=== PATIENT | male | born 1960 | race Caucasian/White ===

== ENCOUNTER 2018-07-27 21:21 | Observation (INO) | payer OTHER ==
[2018-07-27 21:25] VITALS: BMI 31.7
--- NOTE | 2018-07-27 21:57 | PDOC ---
Attending Attestation - HPI HPI: 07/27/18 22:26 The patient is a 58 year old man with no PMH of cough productive of yellow colored phlegm, nasal congestion, shortness of breath, and chest tightness with exertion for the past week. Patient is also complaining of pain to her upper extremities and back pain for 3 days. Patient took ampicillin, theraflu and nebulizer at home. Patient admits to positive sick contact. The patient denies headache, dizziness, fever, chills, nausea, vomit, diarrhea and constipation. Denies dysuria, frequency, urgency and hematuria. Allergies; NKDA Surgeries: None reported. Social Hx: Occasional cocaine use. Denies cigarette or alcohol use. 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 Pt has no wheezing. No coughing in the ER, Afebrile; Pt has chest tightness. - Medical Decision Making 07/27/18 21:57 Repeat 137/80s systolic on right; 158/80s systolic left 07/27/18 23:36 Flu negative. WBC normal. CBC normal Rest of labs normal. 07/28/18 00:36 Pt has a +elevated trop and an EKG with ST depression and NSTEMI 07/28/18 06:01 2nd cardiac enzyme is going up. Pt will have a 3rd enzyme sent. He is on heparin drip. <Lula Guthrie - Last Filed: 07/28/18 06:02>
--- NOTE | 2018-07-27 22:02 | PDOC ---
History of Present Illness - General Chief Complaint: Shortness of Breath Stated Complaint: COLD SYMPTOMS Time Seen by Provider: 07/27/18 21:35 - History of Present Illness Initial Comments: 07/27/18 21:57 58 year old man with no past medical history of 1 week of coughing up yellow/ brown phlegm, congestion, shortness of breath and 8/10 chest tightness that occurs when coughing and on exertion. The patient complains of upper extremity muscle pain and L sided upper back pain for 3 days. The patient has taken ampicillin, theraflu and albuterol neb at home for symptom relief. The patient denies chest pain radiating to the back, or occurring outside of coughing or exertion. The patient denies recent travel, long flights, has w/ recent viral URI. Denies abdominal pain, N/V/D/C, has no other complaints at bedside. does not smoke but admits to occasional cocaine use Past History - Past Medical History Allergies/Adverse Reactions: Allergies Allergy/AdvReac Type Severity Reaction Status Date / Time No Known Allergies Allergy Verified 07/27/18 21:24 Home Medications: Ambulatory Orders NK [No Known Home Medication] 07/27/18 COPD: No - Immunization History Immunization Up to Date: Yes - Suicide/Smoking/Psychosocial Hx Smoking History: Never smoked Have you smoked in the past 12 months: No Hx Alcohol Use: No Drug/Substance Use Hx: No Substance Use Type: None *Physical Exam - Vital Signs Last Vital Signs Temp Pulse Resp BP Pulse Ox 97.9 F 70 22 H 195/99 H 97 07/27/18 21:22 07/27/18 21:22 07/27/18 21:22 07/27/18 21:22 07/27/18 21:22 - Physical Exam Comments: 07/27/18 22:03 normal exam slightly coarse breath sounds Moderate Sedation - Procedure Monitoring Vital Signs: Procedure Monitoring Vital Signs Temperature 97.9 F 07/27/18 21:22 Pulse Rate 70 07/27/18 21:22 Respiratory Rate 22 H 07/27/18 21:22 Blood Pressure 195/99 H 07/27/18 21:22 O2 Sat by Pulse Oximetry (%) 97 07/27/18 21:22 ED Treatment Course - LABORATORY CBC & Chemistry Diagram: 07/27/18 22:55 07/27/18 22:56 - RADIOLOGY Radiology Studies Ordered: Category Date Time Status CHEST X-RAY PORTABLE* [RAD] Stat Radiology 07/27/18 21:35 Ordered Medical Decision Making - Medical Decision Making 07/27/18 22:04 ED Course: influenza vs viral URI vs PNA vs bronchitis vs ACS cbc, cmp, trop, ekg, cxr, ua, utox ivf repeat bp on R arm 137/78 and L arm 158/80 07/28/18 00:41 troponin elevated. EKG done showed ST depression in V4- V6 ASA given 07/28/18 01:40 trop l;eevated to .24 ekg repeated without changes heparin drip started Cards called, no recs at this time. *DC/Admit/Observation/Transfer Diagnosis at time of Disposition: Chest pain, Viral syndrome, Cocaine use - Discharge Dispostion Disposition: HOME Condition at time of disposition: Stable Decision to Admit order: Yes - Referrals Referrals: [facility] [place] [facility] [place] [Provider Group] - Patient Instructions Printed Discharge Instructions: DI for Viral Syndrome Additional Instructions: You were seen in the ED for complaints of cough, congestion and fever. In the ED you were evaluated with labwork and imaging. Your results did not show concerning findings. There does not appear to be an acute need for immediate hospitalization. You are advised to follow up with your Primary Care Physician within 1 week. You were given a referral to Internal Medicine Clinic please follow up in 1 week. Take over the counter Motrin and Tylenol for your symptoms. Drink plenty of fluids and take rest. Do not use recreational drugs like cocaine. Return to the ED immediately if you experience worsening chest pain, shortness of breath, fever > 101F, neck pain or stiffness, muscle pain or aches. Usted fue visto en el servicio de urgencias por quejas de tos, congestin y fiebre. En el servicio de urgencias se le evalu con trabajo de laboratorio e imgenes. Niecy resultados no se mostraron en relacin con los resultados. No parece miky carine necesidad aguda de hospitalizacin inmediata. Se recomienda realizar un seguimiento con chandler mdico de atencin primaria dentro de 1 semana. Recibi carine derivacin a la clnica de medicina interna, por favor omero el seguimiento en 1 semana. Geraldine el contador Motrin y Tylenol para niecy sntomas. Letty muchos lquidos y descansa. No use drogas recreativas patti la cocana. Regrese a la antionette de urgencias inmediatamente si experimenta un empeoramiento del dolor en el pecho, falta de aliento, fiebre> 101F, dolor o rigidez en el taylor, dolor muscular o dolor - Post Discharge Activity
[2018-07-27] MEDS ORDERED: SODIUM CHLORIDE 1,000 ML IV SCH (22:45)
[2018-07-27 23:04] LABS: BASO % 1.4 % (0-2.0); EOS % 1.3 % (0-4.5); HEMATOCRIT 44.7 % (35.4-49); HEMOGLOBIN 15.7 GM/dL (11.7-16.9); LYMPH % 29.9 % (8-40); MCHC 35.1 g/dl (32.0-35.9); MEAN CELL VOLUME 88.4 fl (80-96); MEAN PLT VOLUME 8.5 fl (7.5-11.1); MONO % 5.2 % (3.8-10.2); NEUT % 62.2 % (42.8-82.8); PLATELET COUNT 247 K/MM3 (134-434); RBC 5.06 M/mm3 (4.00-5.60); RDW 12.6 % (11.9-15.9); WHITE BLOOD COUNT 4.8 K/mm3 (4.0-10.0)
[2018-07-27] MEDS ORDERED: IBUPROFEN 800 MG/8 ML IJ IVPB ONE (23:36)
[2018-07-27] MEDS ORDERED: IBUPROFEN 600 MG TABLET (FP) PO ONE (23:37)
[2018-07-27 23:40] LABS: ALBUMIN 3.8 g/dl (3.4-5.0); ALK PHOS 102 U/L (45-117); ANION GAP 8 MMOL/L (8-16); BILIRUBIN,TOTAL 0.3 mg/dL (0.2-1); BLOOD UREA NITROGEN 11 mg/dL (7-18); CALCIUM 8.8 mg/dL (8.5-10.1); CHLORIDE 106 mmol/L (98-107); CO2 28 mmol/L (21-32); GLUCOSE,RANDOM 140 mg/dL (74-106); N-TERMINAL BNP 242.8 pg/ml (5-125); POTASSIUM 3.5 mmol/L (3.5-5.1); SGOT/AST 24 U/L (15-37); SGPT/ALT 32 U/L (13-61); SODIUM 141 mmol/L (136-145); TOT PROT 7.4 g/dl (6.4-8.2)
[2018-07-28 00:10] LABS: METHADONE, UR NEGATIVE ng/ml (CUTOFF=300); OPIATES, URI NEGATIVE ng/ml (CUTOFF=300); PHENCYCLIDINE,URINE NEGATIVE ng/ml (CUTOFF=25); URINE AMPHETAMINES NEGATIVE ng/ml (CUTOFF=500); URINE BARBITURATES NEGATIVE ng/ml (CUTOFF=200); URINE BENZODIAZEPINES NEGATIVE ng/ml (CUTOFF=200)
[2018-07-28 00:16] LABS: COCAINE, UR POSITIVE ng/ml (CUTOFF=300)
[2018-07-28] MEDS ORDERED: ALBUTEROL SO4 2.5/IPRATROPIUM 0.5 INH SOL 3 ML VIAL.NEB. NEB ONE (00:20)
[2018-07-28] MEDS ORDERED: DEXAMETHASONE LIQUID 0.5 MG/5 ML 240 ML BULK BOTTLE PO ONE (00:21)
[2018-07-28] MEDS ORDERED: ASPIRIN 81 MG CHEWABLE TABLETS PO ONE (00:22)
[2018-07-28] MEDS ORDERED: ASPIRIN 81 MG CHEWABLE TABLETS ONE ×2 (00:26→12:59)
[2018-07-28] MEDS ORDERED: HEPARIN NA (PORCINE) 5,000 UNITS/ML 1ML VIAL IVPUSH PRN ×2 (00:35)
--- NOTE | 2018-07-28 01:12 | PN ---
Teaching Attending Note Name of Resident: Ludivina Bush ATTENDING PHYSICIAN STATEMENT I saw and evaluated the patient. I reviewed the resident's note and discussed the case with the resident. I agree with the resident's findings and plan as documented. SUBJECTIVE: Seen and examined; please refer to resident note for additional historical information. He has been having about a week of nonspecific URI sx (cough with yellow sputum, congestion, etc) and 2-3 days of atypical chest pain made worse with coughing and exertion; L-sided, hasn't had this pain before. Does have positive UDS for cocaine. We don't have any prior echos, cath reports, or stress tests in our system. Cardiology contacted by ER; they are aware of patient and will see in AM. 10 sys ROS done and negative aside from HPI PMH and PSH reviewed FH asked and noncontributory Social history reviewed; positive UDS for cocaine OBJECTIVE: VS, labs, imaging reviewed NAD, AAO, resting comfortably in bed RRR s1/2 no mgr Lungs CTAB w/ sym exp NT ND +BS CN2-12 wnl, no fnd Labs show unremarkable CBC, unremarkable chemistry except for glucose up to the 140 range. Troponin 0.15 and BNP 200 range EKG reviewed CXR reviewed Telemetry pending review ASSESSMENT AND PLAN: Presents with chest pain; positive UDS for cocaine 1) Chest pain with history of recent cocaine use -Monitor on telemetry; trend troponin (0.15 first, second value pending); discuss case with CV. Less likely ACS given the drug history -Check echo; further workup and management per cardiology 2) Cocaine Abuse -Counseled to stop using cocaine 3) HTN Urgency vs. Emergency -With positive trop being from cocaine would be urgency; if from the HTN emergency. Most likely a combination of the both. -PRN hydralazine to get to goal 150-160 -Start amlodipine 5 QD and lisinopril 2.5 QD -Monitor on telemetry 4) URI Sx w/ sick contact -Negative flu swab; afebrile without white count so not inclined to give abx -Will check viral swab, sputum cx. No PNA on CXR. Trend CBC and monitor for fever. FENA -LR@60cc/hr overnight -PRN replete -Cardiac diet -As tolerated Full Code
[2018-07-28] MEDS: HEPARIN SOD,PORK IN 0.45% NACL 25,000 UNITS/500 ML INFUS.BAG IVPB SCH ×2 (01:40→22:50)
--- NOTE | 2018-07-28 02:23 | HP ---
CHIEF COMPLAINT:chest pain PCP: HISTORY OF PRESENT ILLNESS: Patient is a 58 year old male with history of chronic cocaine use, presented with intermittent, midsternal chest pressure radiating to the left shoulder accompanied by dyspnea for 3 days. Patient reported he had cough and colds 1 week ago, for which he took Ampicillin, thermaflu and albuterol neb. His symptoms started to improve. Three days ago, patient started having intermittent episodes of chest pain radiating to his left shoulder and left upper back, accompanied by dyspnea on exertion. Symptoms persisted so patient came to the ED. Of note, patient reports snorting cocaine at least every other day. Patient denies fever, chills, headache, nausea, vomiting, palpitations, abdominal pain, diarrhea, urinary symptoms. ER course was notable for: (1)Trop 0.15 --> 0.24 (2)EKG - ST depression on lateral leads (3)Cocaine - positive Recent Travel: Denies any recent travel PAST MEDICAL HISTORY: noncontributory PAST SURGICAL HISTORY: noncontributory Social History: Smoking:denies Alcohol:occasional Drugs: cocaine lives with raine. Has a daughter. Family History: noncontributory Allergies No Known Allergies Allergy (Verified 07/27/18 21:24) HOME MEDICATIONS: Home Medications Medication Instructions Recorded NK [No Known Home Medication] 07/27/18 REVIEW OF SYSTEMS CONSTITUTIONAL: Absent: fever, chills, diaphoresis, generalized weakness, malaise, loss of appetite, weight change HEENT: Absent: rhinorrhea, nasal congestion, throat pain, throat swelling, difficulty swallowing, mouth swelling, ear pain, eye pain, visual changes CARDIOVASCULAR: Absent: chest pain, syncope, palpitations, irregular heart rate, lightheadedness , peripheral edema RESPIRATORY: Absent: cough, shortness of breath, dyspnea with exertion, orthopnea, wheezing, stridor, hemoptysis GASTROINTESTINAL: Absent: abdominal pain, abdominal distension, nausea, vomiting, diarrhea, constipation, melena, hematochezia GENITOURINARY: Absent: dysuria, frequency, urgency, hesitancy, hematuria, flank pain, genital pain MUSCULOSKELETAL: Absent: myalgia, arthralgia, joint swelling, back pain, neck pain SKIN: Absent: rash, itching, pallor HEMATOLOGIC/IMMUNOLOGIC: Absent: easy bleeding, easy bruising, lymphadenopathy, frequent infections ENDOCRINE: Absent: unexplained weight gain, unexplained weight loss, heat intolerance, cold intolerance NEUROLOGIC: Absent: headache, focal weakness or paresthesias, dizziness, unsteady gait, seizure, mental status changes, bladder or bowel incontinence PSYCHIATRIC: Absent: anxiety, depression, suicidal or homicidal ideation, hallucinations. PHYSICAL EXAMINATION Vital Signs - 24 hr 07/27/18 21:22 Temperature 97.9 F Pulse Rate 70 Respiratory 22 H Rate Blood Pressure 195/99 H O2 Sat by Pulse 97 Oximetry (%) GENERAL: Awake, alert, and fully oriented, in no acute distress. HEAD: Normal with no signs of trauma. EYES: PERRLA, EOMI, sclera anicteric, conjunctiva clear. EARS, NOSE, THROAT: Ears normal, nares patent, oropharynx clear without exudates. Moist mucous membranes. NECK: Normal range of motion, supple without lymphadenopathy, JVD, or masses. LUNGS: Breath sounds equal, clear to auscultation bilaterally. HEART: Regular rate and rhythm, normal S1 and S2 without murmur, rub or gallop. ABDOMEN: Soft, nontender, not distended, normoactive bowel sounds. MUSCULOSKELETAL: Normal range of motion at all joints. No bony deformities or tenderness. No CVA tenderness. UPPER EXTREMITIES: 2+ pulses, warm, well-perfused. No cyanosis. No clubbing. No peripheral edema. LOWER EXTREMITIES: 2+ pulses, warm, well-perfused. No calf tenderness. No peripheral edema. NEUROLOGICAL: Cranial nerves II-XII intact. Normal speech. Normal gait. PSYCHIATRIC: Cooperative. Good eye contact. Appropriate mood and affect. SKIN: Warm, dry, normal turgor, no rashes or lesions noted. Laboratory Results - last 24 hr 07/27/18 07/27/18 07/27/18 22:55 22:55 22:56 WBC 4.8 RBC 5.06 Hgb 15.7 Hct 44.7 MCV 88.4 MCH 31.0 MCHC 35.1 RDW 12.6 Plt Count 247 D MPV 8.5 Absolute Neuts (auto) 3.0 Neutrophils % 62.2 Lymphocytes % 29.9 Monocytes % 5.2 Eosinophils % 1.3 Basophils % 1.4 Nucleated RBC % 0 Sodium 141 Potassium 3.5 Chloride 106 Carbon Dioxide 28 Anion Gap 8 BUN 11 Creatinine 1.0 Creat Clearance w eGFR > 60 Random Glucose 140 H Calcium 8.8 Total Bilirubin 0.3 AST 24 ALT 32 Alkaline Phosphatase 102 Creatine Kinase Troponin I 0.15 H B-Natriuretic Peptide 242.8 H Total Protein 7.4 Albumin 3.8 Opiates Screen Methadone Screen Barbiturate Screen Phencyclidine Screen Ur Amphetamines Screen MDMA (Ecstasy) Screen Benzodiazepines Screen Cocaine Screen U Marijuana (THC) Screen Influenza A (Rapid) Negative Influenza B (Rapid) Negative 07/27/18 07/28/18 23:21 00:24 WBC RBC Hgb Hct MCV MCH MCHC RDW Plt Count MPV Absolute Neuts (auto) Neutrophils % Lymphocytes % Monocytes % Eosinophils % Basophils % Nucleated RBC % Sodium Potassium Chloride Carbon Dioxide Anion Gap BUN Creatinine Creat Clearance w eGFR Random Glucose Calcium Total Bilirubin AST ALT Alkaline Phosphatase Creatine Kinase 99 Troponin I 0.24 H B-Natriuretic Peptide Total Protein Albumin Opiates Screen Negative Methadone Screen Negative Barbiturate Screen Negative Phencyclidine Screen Negative Ur Amphetamines Screen Negative MDMA (Ecstasy) Screen Negative Benzodiazepines Screen Negative Cocaine Screen Positive A* U Marijuana (THC) Screen Negative Influenza A (Rapid) Influenza B (Rapid) ASSESSMENT/PLAN: Patient is a 58 year old male with history of chronic cocaine use, presented with intermittent, midsternal chest pressure radiating to the left shoulder accompanied by dyspnea for 3 days. #Chest pain likely 2/2 NSTEMI, cocaine use -Trend trops 0.15 --> 0.24 -EKG: ST depression on lateral leads -Heparin drip started -ASA 325 given at the ED, will continue ASA 81mg daily. -Echo -Cardiology (Dr. Vance) consulted. Recommendations appreciated. 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 - New Patient This patient is new to me today: Yes Date on this admission: 07/28/18 - Critical Care Critical Care patient: No
[2018-07-28] MEDS ORDERED: hydrALAZINE HCL 20 MG/ML VIAL IVPUSH PRN (02:31)
[2018-07-28 07:57] LABS: BASO % 0.7 % (0-2.0); EOS % 2.4 % (0-4.5); HEMATOCRIT 43.2 % (35.4-49); HEMOGLOBIN 14.9 GM/dL (11.7-16.9); LYMPH % 47.1 % (8-40); MCH 30.9 pg (25.7-33.7); MCHC 34.5 g/dl (32.0-35.9); MEAN CELL VOLUME 89.5 fl (80-96); MONO % 6.8 % (3.8-10.2); PLATELET COUNT 219 K/MM3 (134-434); RBC 4.82 M/mm3 (4.00-5.60); RDW 12.8 % (11.9-15.9); WHITE BLOOD COUNT 5.2 K/mm3 (4.0-10.0)
[2018-07-28 08:32] LABS: ALBUMIN 3.6 g/dl (3.4-5.0); ALK PHOS 94 U/L (45-117); ANION GAP 7 MMOL/L (8-16); BILIRUBIN,TOTAL 0.3 mg/dL (0.2-1); BLOOD UREA NITROGEN 9 mg/dL (7-18); CALCIUM 8.3 mg/dL (8.5-10.1); CHLORIDE 107 mmol/L (98-107); CO2 27 mmol/L (21-32); CREATININE 0.8 mg/dL (0.55-1.3); GLUCOSE,RANDOM 88 mg/dL (74-106); MAGNESIUM 2.2 mg/dL (1.8-2.4); PHOSPHOROUS 2.6 mg/dL (2.5-4.9); POTASSIUM 3.8 mmol/L (3.5-5.1); SGOT/AST 32 U/L (15-37); SGPT/ALT 37 U/L (13-61); SODIUM 141 mmol/L (136-145); TOT PROT 6.7 g/dl (6.4-8.2)
--- NOTE | 2018-07-28 08:33 | EKG ---
Test Reason : Blood Pressure : / mmHG Vent. Rate : 064 BPM Atrial Rate : 064 BPM P-R Int : 170 ms QRS Dur : 094 ms QT Int : 464 ms P-R-T Axes : 046 018 101 degrees QTc Int : 478 ms NORMAL SINUS RHYTHM PROLONGED QT ABNORMAL ECG NO PREVIOUS ECGS AVAILABLE Confirmed by DWAYNE MEADE, ASHOK ([id number]) on 07/28/2018 8:32:59 AM Referred By: Confirmed By:ASHOK RICE MD
--- NOTE | 2018-07-28 08:40 | EKG ---
Test Reason : Blood Pressure : / mmHG Vent. Rate : 061 BPM Atrial Rate : 061 BPM P-R Int : 174 ms QRS Dur : 090 ms QT Int : 448 ms P-R-T Axes : 041 014 109 degrees QTc Int : 450 ms NORMAL SINUS RHYTHM ABNORMAL ECG WHEN COMPARED WITH ECG OF 28-JUL-2018 00:28, NO SIGNIFICANT CHANGE WAS FOUND Confirmed by ASHOK RICE MD ([id number]) on 07/28/2018 8:39:48 AM Referred By: Confirmed By:ASHOK RICE MD
--- NOTE | 2018-07-28 10:50 | PN ---
Progress Note, Physician Chief Complaint: Mr Perez says he is doing well and is without complaint. Denies cp, sob, n/v. - Current Medication List Current Medications: Active Medications Amlodipine Besylate (Norvasc -) 5 mg PO DAILY [facility] Aspirin (Asa -) 81 mg PO DAILY [facility] Heparin Sodium (Porcine) (Heparin -) 1,000 unit IVPUSH PRN PRN PRN Reason: Heparin Heparin Sodium (Porcine) (Heparin -) 5,000 unit IVPUSH PRN PRN PRN Reason: Heparin Hydralazine HCl (Apresoline Injection -) 10 mg IVPUSH Q8H PRN PRN Reason: HYPERTENSION HEPARIN SOD,PORK IN 0.45% NACL (Heparin-1/2ns 25,000 Units/500) 25,000 units in 500 mls @ 20 mls/hr IVPB TITR [facility]; Protocol Last Admin: 07/28/18 01:40 Dose: 1,000 units/hr, 20 mls/hr Lisinopril (Prinivil) 2.5 mg PO DAILY [facility] - Objective Vital Signs: Vital Signs Temperature 36.5 C 07/28/18 03:55 Pulse Rate 56 L 07/28/18 03:55 Respiratory Rate 22 H 07/27/18 21:22 Blood Pressure 148/72 07/28/18 03:55 O2 Sat by Pulse Oximetry (%) 99 07/28/18 03:55 Constitutional: Yes: Well Nourished, No Distress, Calm Cardiovascular: Yes: Regular Rate and Rhythm. No: Gallop, Murmur, Rub Respiratory: Yes: Regular, CTA Bilaterally. No: Rales, Rhonchi, Wheezes Gastrointestinal: Yes: Normal Bowel Sounds, Soft. No: Distention, Tenderness Extremities: Yes: WNL Edema: No Labs: CBC, BMP 07/28/18 07:19 07/28/18 06:00 Problem List - Problems (1) Chest pain Assessment/Plan: -chest pain currently resolved -however with climbing troponins, now 0.91 -cardiology consulted -? NSTEMI vs stress induced from cocaine use -heparin gtt started in the ED, continue until seen by cardiology -trend troponins -hold on beta blockers secondary to cocaine use Code(s): R07.9 - CHEST PAIN, UNSPECIFIED (2) Cocaine use Assessment/Plan: -patient says uses "a little bit" every other day to clear sinuses -says not addicted -counselled on cessation, says he will -he feels he does not need rehab at this time Code(s): F14.90 - COCAINE USE, UNSPECIFIED, UNCOMPLICATED (3) HTN (hypertension) Assessment/Plan: -improved control -continue amlodipine and lisinopril Code(s): I10 - ESSENTIAL (PRIMARY) HYPERTENSION
--- NOTE | 2018-07-28 12:23 | CON.CARD ---
Consult Consult Specialty:: Cardiology Referred by:: Hospitalist Medicine Reason for Consultation:: Demand ischemia - History of Present Illness Chief Complaint: Dyspnea on exertion History of Present Illness: Patient is a 58 year old male with history of chronic cocaine use most recently yesterday, presented with intermittent, midsternal chest pressure radiating to the left shoulder accompanied by dyspnea on exertion for 3 days. He has been having about a week of nonspecific URI sx (cough with yellow sputum, congestion , etc) and 2-3 days of atypical chest pain made worse with coughing and exertion ; L-sided, for which he took Ampicillin, thermaflu and albuterol neb. His symptoms started to improve. Symptoms persisted so patient came to the ED. Of note, patient reports snorting cocaine at least every other day. Patient denies fever, chills, headache, nausea, vomiting, palpitations, abdominal pain, diarrhea, urinary symptoms, near or true syncope, orthopnea, PND or LE edema, currently symptoms have abated. Does have positive UDS for cocaine. ER course was notable for: (1)Trop 0.15 --> 0.24->0.91 (2)EKG -LVH with repol abnl (3)Cocaine - positive - History Source History Provided By: Patient Limitations to Obtaining History: No Limitations - Past Medical History Cardio/Vascular: Yes: HTN - Alcohol/Substance Use Hx Alcohol Use: No History of Substance Use: reports: Cocaine - Smoking History Smoking history: Never smoked Have you smoked in the past 12 months: No - Social History ADL: Independent History of Recent Travel: No Home Medications - Allergies Allergies/Adverse Reactions: Allergies Allergy/AdvReac Type Severity Reaction Status Date / Time No Known Allergies Allergy Verified 07/27/18 21:24 - Home Medications Home Medications: Ambulatory Orders NK [No Known Home Medication] 07/27/18 Family Disease History - Family Disease History Family Disease History: Heart Disease: Father (hypertension) Review of Systems - Review of Systems Cardiovascular: reports: Chest Pain Respiratory: reports: SOB on Exertion Vital Signs: Vital Signs Temperature 97.7 F 07/28/18 03:55 Pulse Rate 64 07/28/18 07:30 Respiratory Rate 16 07/28/18 07:30 Blood Pressure 138/79 07/28/18 07:30 O2 Sat by Pulse Oximetry (%) 99 07/28/18 07:30 Constitutional: Yes: No Distress, Calm Neck: Yes: Supple Respiratory: Yes: Regular, Diminished Gastrointestinal: Yes: Normal Bowel Sounds, Soft Cardiovascular: Yes: Regular Rate and Rhythm JVD: No Carotid Bruit: No Heart Sounds: Yes: S1, S2 Edema: No - Other Data Labs, Other Data: CBC, BMP 07/28/18 07:19 07/28/18 06:00 Troponin, BNP 07/27/18 07/28/18 07/28/18 22:56 00:24 07:19 Troponin I 0.15 H 0.24 H 0.91 H* B-Natriuretic Peptide 242.8 H Troponin, BNP 07/27/18 07/28/18 07/28/18 22:56 00:24 07:19 Troponin I 0.15 H 0.24 H 0.91 H* B-Natriuretic Peptide 242.8 H SB @ 52 LVH with repol abnl Imaging - Results Chest X-ray: Report Reviewed (NAD) Problem List - Problems (1) Hypertensive emergency Code(s): I16.1 - HYPERTENSIVE EMERGENCY (2) Demand ischemia Code(s): I24.8 - OTHER FORMS OF ACUTE ISCHEMIC HEART DISEASE (3) Chest pain Code(s): R07.9 - CHEST PAIN, UNSPECIFIED Qualifiers: Chest pain type: precordial pain Qualified Code(s): R07.2 - Precordial pain (4) Cocaine use Code(s): F14.90 - COCAINE USE, UNSPECIFIED, UNCOMPLICATED (5) Hypertensive cardiomyopathy Code(s): I11.9 - HYPERTENSIVE HEART DISEASE WITHOUT HEART FAILURE; I43 - CARDIOMYOPATHY IN DISEASES CLASSIFIED ELSEWHERE Qualifiers: Heart failure presence: without heart failure Qualified Code(s): I11.9 - Hypertensive heart disease without heart failure; I43 - Cardiomyopathy in diseases classified elsewhere Assessment/Plan 1. Chest pain syndrome 2. CAD demand ischemia 3. Cocaine abuse 4. Hypertension emergency improved 5. Hypertensive cardiomyopathy P:1. Trend troponins to document peak, heparin gtt pending trop peak, check TSH and lipid panel 2. Echo to assess ventricular and valve fxn 3. Continue ASA 81 qd, Norvasc 5 qd, lisinopril 2.5 qd with uptitration as tolerated 4. Cocaine abstinence 5. Outpatient stress testing to evaluate severity of CAD if compliant with meds and cocaine abstinence 6. Thank you for consultatibe opportunity
--- NOTE | 2018-07-28 12:25 | EKG ---
Test Reason : Blood Pressure : / mmHG Vent. Rate : 052 BPM Atrial Rate : 052 BPM P-R Int : 178 ms QRS Dur : 090 ms QT Int : 494 ms P-R-T Axes : 045 018 102 degrees QTc Int : 459 ms SINUS BRADYCARDIA WITH SINUS ARRHYTHMIA LEFT VENTRICULAR HYPERTROPHY WITH REPOLARIZATION ABNORMALITY ABNORMAL ECG WHEN COMPARED WITH ECG OF 28-JUL-2018 01:37, NO SIGNIFICANT CHANGE WAS FOUND Confirmed by DWAYNE MEADE, ASHOK ([id number]) on 07/28/2018 12:24:29 PM Referred By: Timothy MOORE Confirmed By:ASHOK RICE MD
[2018-07-28] MEDS: LISINOPRIL 5 MG TABLET (FP) PO SCH (12:51)
[2018-07-28] MEDS: ASPIRIN 81 MG CHEWABLE TABLETS PO SCH (12:51)
[2018-07-28] MEDS: amLODIPine BESYLATE 5 MG TABLET (FP) PO SCH (12:51)
[2018-07-28] MEDS ORDERED: LISINOPRIL 5 MG TABLET (FP) ONE (12:59)
[2018-07-28] MEDS ORDERED: amLODIPine BESYLATE 5 MG TABLET (FP) ONE (12:59)
[2018-07-29 06:57] LABS: BASO % 0.7 % (0-2.0); EOS % 2.6 % (0-4.5); HEMATOCRIT 44.5 % (35.4-49); HEMOGLOBIN 14.4 GM/dL (11.7-16.9); LYMPH % 47.6 % (8-40); MCH 29.2 pg (25.7-33.7); MCHC 32.4 g/dl (32.0-35.9); MEAN CELL VOLUME 89.9 fl (80-96); MEAN PLT VOLUME 8.5 fl (7.5-11.1); MONO % 7.7 % (3.8-10.2); NEUT % 41.4 % (42.8-82.8); PLATELET COUNT 217 K/MM3 (134-434); RBC 4.95 M/mm3 (4.00-5.60); RDW 12.9 % (11.9-15.9); WHITE BLOOD COUNT 4.8 K/mm3 (4.0-10.0)
[2018-07-29 07:42] LABS: ANION GAP 8 MMOL/L (8-16); BLOOD UREA NITROGEN 10 mg/dL (7-18); CALCIUM 8.8 mg/dL (8.5-10.1); CHLORIDE 106 mmol/L (98-107); CO2 26 mmol/L (21-32); CREATININE 0.8 mg/dL (0.55-1.3); GLUCOSE,RANDOM 89 mg/dL (74-106); MAGNESIUM 2.3 mg/dL (1.8-2.4); PHOSPHOROUS 2.8 mg/dL (2.5-4.9); POTASSIUM 3.6 mmol/L (3.5-5.1); SODIUM 141 mmol/L (136-145)
[2018-07-29 07:54] LABS: CHOLESTEROL 237 mg/dL (50-200); HDL CHOLESTEROL 44 mg/dL (40-60); TRIGLYCERIDES 174 mg/dL (0-150)
[2018-07-29] MEDS: LISINOPRIL 5 MG TABLET (FP) PO SCH (10:19)
[2018-07-29] MEDS: ASPIRIN 81 MG CHEWABLE TABLETS PO SCH (10:19)
[2018-07-29] MEDS: amLODIPine BESYLATE 5 MG TABLET (FP) PO SCH (10:19)
[2018-07-29] MEDS: HEPARIN SOD,PORK IN 0.45% NACL 25,000 UNITS/500 ML INFUS.BAG IVPB SCH (10:20)
--- NOTE | 2018-07-29 10:54 | ECHO ---
Name: OSEAS RODRIGUEZ Exam:Adult Echocardiogram Study Date: 07/29/2018 09:16 AM Age: 58 yrs Reason For Study: NSTEMI Height: 69 in Weight: 215 lb BSA: 2.1 m2 MMode/2D Measurements & Calculations IVSd: 1.3 cm ACS: 2.0 cm LVIDd: 4.6 cm LVIDs: 3.2 cm LVPWd: 1.6 cm EDV(Pranay): 97.7 ml ESV(Teich): 39.9 ml Doppler Measurements & Calculations Med Peak E' Kannan: 4.3 cm/sec Procedure A complete two-dimensional transthoracic echocardiogram was performed (2D, M-mode, Doppler and color flow Doppler). Technically limited study. Left Ventricle The left ventricle is normal in size. There is mild concentric left ventricular hypertrophy. Left yogesh tricular systolic function is normal. Ejection Fraction = 55-60%. No regional wall motion abnormalities noted. Right Ventricle The right ventricle is normal size. The right ventricular systolic function is normal. Atria The left atrial size is normal. Right atrial size is normal. Mitral Valve There is mild mitral annular calcification. There is mild mitral valve thickening. There is trace to mild mitral regurgitation. Tricuspid Valve The tricuspid valve is normal in structure and function. No tricuspid regurgitation. Aortic Valve The aortic valve is normal in structure and function. No aortic regurgitation is present. Pulmonic Valve The pulmonic valve is not well visualized. Great Vessels The aortic root is normal size. Pericardium/Pleura There is no pericardial effusion. Interpretation Summary Technically limited study The left ventricle is normal in size. There is mild concentric left ventricular hypertrophy. Left ventricular systolic function is normal. No regional wall motion abnormalities noted. Ejection Fraction = 55-60%. The right ventricular systolic function is normal. The left atrial size is normal. Right atrial size is normal. There is mild mitral annular calcification. There is mild mitral valve thickening. There is trace to mild mitral regurgitation. There is no pericardial effusion. Previous study is not available for comparison Sohan Benton MD 07/29/2018 10:54 AM
--- NOTE | 2018-07-29 11:49 | PN ---
Progress Note, Physician Chief Complaint: Mr Perez is without complaint, says he feels good. Denies cp, sob, n/v. - Current Medication List Current Medications: Active Medications Amlodipine Besylate (Norvasc -) 5 mg PO DAILY [facility] Last Admin: 07/29/18 10:19 Dose: 5 mg Aspirin (Asa -) 81 mg PO DAILY [facility] Last Admin: 07/29/18 10:19 Dose: 81 mg Atorvastatin Calcium (Lipitor -) 10 mg PO [facility] Heparin Sodium (Porcine) (Heparin -) 1,000 unit IVPUSH PRN PRN PRN Reason: Heparin Heparin Sodium (Porcine) (Heparin -) 5,000 unit IVPUSH PRN PRN PRN Reason: Heparin Hydralazine HCl (Apresoline Injection -) 10 mg IVPUSH Q8H PRN PRN Reason: HYPERTENSION HEPARIN SOD,PORK IN 0.45% NACL (Heparin-1/2ns 25,000 Units/500) 25,000 units in 500 mls @ 20 mls/hr IVPB TITR [facility]; Protocol Last Admin: 07/29/18 10:20 Dose: 1,100 units/hr, 22 mls/hr Lisinopril (Prinivil) 5 mg PO DAILY [facility] - Objective Vital Signs: Vital Signs Temperature 36.7 C 07/29/18 09:00 Pulse Rate 51 L 07/29/18 09:00 Respiratory Rate 18 07/29/18 09:00 Blood Pressure 148/84 07/29/18 09:00 O2 Sat by Pulse Oximetry (%) 96 07/29/18 10:00 Constitutional: Yes: No Distress, Calm, Obese Cardiovascular: Yes: Regular Rate and Rhythm. No: Gallop, Murmur, Rub Respiratory: Yes: CTA Bilaterally. No: Rales, Rhonchi, Wheezes Gastrointestinal: Yes: Normal Bowel Sounds, Soft. No: Distention, Tenderness Extremities: Yes: WNL Edema: No Labs: CBC, BMP 07/29/18 05:30 07/29/18 05:30 Problem List - Problems (1) Chest pain Code(s): R07.9 - CHEST PAIN, UNSPECIFIED Qualifiers: Chest pain type: precordial pain Qualified Code(s): R07.2 - Precordial pain (2) Cocaine use Code(s): F14.90 - COCAINE USE, UNSPECIFIED, UNCOMPLICATED (3) HTN (hypertension) Code(s): I10 - ESSENTIAL (PRIMARY) HYPERTENSION Assessment/Plan (1) Chest pain Assessment/Plan: -chest pain resolved -troponins trending down but not normal -continue heparin gtt currently -continue aspirin, will increase lisinopril for blood pressure control -no beta shavonne secondary to cocaine use, but may benefit from use in the future -outpatient stress testing -ECHO reviewed -discharge planning when cleared by cardiology Code(s): R07.9 - CHEST PAIN, UNSPECIFIED (2) Cocaine use Assessment/Plan: -patient says he will stop Code(s): F14.90 - COCAINE USE, UNSPECIFIED, UNCOMPLICATED (3) HTN (hypertension) Assessment/Plan: -increase lisinopril today -continue amlodipine Code(s): I10 - ESSENTIAL (PRIMARY) HYPERTENSION
--- NOTE | 2018-07-29 12:51 | DS ---
Physical Examination Vital Signs: Vital Signs Temperature 36.7 C 07/29/18 09:00 Pulse Rate 51 L 07/29/18 09:00 Respiratory Rate 18 07/29/18 09:00 Blood Pressure 148/84 07/29/18 09:00 O2 Sat by Pulse Oximetry (%) 96 07/29/18 10:00 Labs: CBC, BMP 07/29/18 05:30 07/29/18 05:30 Discharge Summary Reason For Visit: COCAINE USE, VIRAL INFECTION, CHEST PAIN Current Active Problems Chest pain (Acute) Cocaine use (Acute) Demand ischemia (Acute) HTN (hypertension) (Acute) Hypertensive cardiomyopathy (Acute) Hypertensive emergency (Acute) Viral syndrome (Acute) Hospital Course: Please refer to progress note from today for physical exam. Mr Perez is a 58 year old male who comes in with chest pain after cocaine use. He was admitted under observation to telemetry. He did have elevated troponins so cardiology was consulted and he was started on a heparin gtt. Beta blockers were not used secondary to cocaine use. He was started on lisinopril and norvasc. His troponin has trended down and case d/w Dr Vance. He is safe to stop heparin gtt and discharge with follow up. Patient was instructed to stop using cocaine. He is safe for discharge home. 33 minutes spent in preparation of this discharge Condition: Good - Instructions Diet, Activity, Other Instructions: Resume previous activity. Start a low fat diet You are advised to follow up with your Primary Care Physician within 1 week. You were given a referral to Internal Medicine Clinic please follow up in 1 week. Do not use recreational drugs like cocaine. Return to the ED immediately if you experience worsening chest pain, shortness of breath, fever > 101F, neck pain or stiffness, muscle pain or aches. Referrals: [facility] [place] [Provider Group] Lam Vance MD [Staff Physician] - Disposition: HOME - Home Medications Comprehensive Discharge Medication List: Ambulatory Orders Amlodipine Besylate [Norvasc -] 5 mg PO DAILY #30 tablet 07/29/18 Aspirin [ASA -] 81 mg PO DAILY #30 tab.chew 07/29/18 Atorvastatin Ca [Lipitor] 10 mg PO HS #30 tablet 07/29/18 Lisinopril [Prinivil] 5 mg PO DAILY #30 tablet 07/29/18
--- NOTE | 2018-07-29 12:54 | PN ---
Progress Note, Physician History of Present Illness: Chest pressure and ELW has resolved. - Current Medication List Current Medications: Active Medications Amlodipine Besylate (Norvasc -) 5 mg PO DAILY [facility] Last Admin: 07/29/18 10:19 Dose: 5 mg Aspirin (Asa -) 81 mg PO DAILY [facility] Last Admin: 07/29/18 10:19 Dose: 81 mg Atorvastatin Calcium (Lipitor -) 10 mg PO [facility] Heparin Sodium (Porcine) (Heparin -) 1,000 unit IVPUSH PRN PRN PRN Reason: Heparin Heparin Sodium (Porcine) (Heparin -) 5,000 unit IVPUSH PRN PRN PRN Reason: Heparin Hydralazine HCl (Apresoline Injection -) 10 mg IVPUSH Q8H PRN PRN Reason: HYPERTENSION HEPARIN SOD,PORK IN 0.45% NACL (Heparin-1/2ns 25,000 Units/500) 25,000 units in 500 mls @ 20 mls/hr IVPB TITR [facility]; Protocol Last Admin: 07/29/18 10:20 Dose: 1,100 units/hr, 22 mls/hr Lisinopril (Prinivil) 5 mg PO DAILY [facility] - Objective Vital Signs: Vital Signs Temperature 98.1 F 07/29/18 09:00 Pulse Rate 51 L 07/29/18 09:00 Respiratory Rate 18 07/29/18 09:00 Blood Pressure 148/84 07/29/18 09:00 O2 Sat by Pulse Oximetry (%) 96 07/29/18 10:00 Constitutional: Yes: No Distress, Calm Neck: Yes: Supple Cardiovascular: Yes: Regular Rate and Rhythm Respiratory: Yes: Regular, CTA Bilaterally Gastrointestinal: Yes: Normal Bowel Sounds, Soft Edema: No Labs: CBC, BMP 07/29/18 05:30 07/29/18 05:30 - ....Imaging EKG: Report Reviewed (Tele: SB) Problem List - Problems (1) Hypertensive emergency Code(s): I16.1 - HYPERTENSIVE EMERGENCY (2) Demand ischemia Code(s): I24.8 - OTHER FORMS OF ACUTE ISCHEMIC HEART DISEASE (3) Chest pain Code(s): R07.9 - CHEST PAIN, UNSPECIFIED Qualifiers: Chest pain type: precordial pain Qualified Code(s): R07.2 - Precordial pain (4) Cocaine use Code(s): F14.90 - COCAINE USE, UNSPECIFIED, UNCOMPLICATED (5) Hypertensive cardiomyopathy Code(s): I11.9 - HYPERTENSIVE HEART DISEASE WITHOUT HEART FAILURE; I43 - CARDIOMYOPATHY IN DISEASES CLASSIFIED ELSEWHERE Qualifiers: Heart failure presence: without heart failure Qualified Code(s): I11.9 - Hypertensive heart disease without heart failure; I43 - Cardiomyopathy in diseases classified elsewhere Assessment/Plan 07/29/2018 Echo: Normal LV size with mild cLVH LVEF 55-60%, normal RV fxn, normal atrial sizes, tr-mild MR 1. Chest pain syndrome 2. CAD demand ischemia 3. Cocaine abuse 4. Hypertension emergency improved 5. Hypertensive cardiomyopathy 6. Hyperlipidemia P:1. Troponins have peaked, d/c heparin gtt 3. Continue ASA 81 qd, Norvasc 5 qd, increased lisinopril 5 qd with uptitration as tolerated, agree with start Lipitor 10 qd 4. Cocaine abstinence 5. Outpatient stress testing to evaluate severity of CAD if compliant with meds , clinical f/u and cocaine abstinence 6. November f/u as outpatient
[2018-07-29 14:35] VITALS: BP 138/89; PULSE 62; TEMP 98
[2018-07-29] MEDS ORDERED: ATORVASTATIN CA 10 MG TABLET (FP) PO SCH (22:00)
[2018-07-30] MEDS ORDERED: LISINOPRIL 5 MG TABLET (FP) PO SCH (10:00)
== END 2018-07-29 17:31 | disposition home or self-care (01) ==
LOC: JER 21:21 → JERBED 07-28 00:57 → J4W 07-28 19:19
PROVIDERS: ADMIT Internal Medicine; ATTEND Internal Medicine
PROC: 3E033GC Introduction of Other Therapeutic Substance into Peripheral Vein, Percutaneous Approach (ICD-10-PCS; principal; 2018-07-28)
DX: R07.89 Other chest pain (principal); J06.9 Acute upper respiratory infection, unspecified; B34.9 Viral infection, unspecified; F14.20 Cocaine dependence, uncomplicated; I16.1 Hypertensive emergency; R77.8 Other specified abnormalities of plasma proteins; I24.8 Other forms of acute ischemic heart disease; I11.9 Hypertensive heart disease without heart failure; I43 Cardiomyopathy in diseases classified elsewhere
CPT/HCPCS: 36415; 71045-TC-FY; 80048; 80053; 80061; 80307; 82550; 83721; 83735; 83880; 84100; 84443; 84484; 85025; 85730; 86658; 87086; 87633; 87804; 93005; 93010; 93306-TC; 96374; 99283-25; G0378; J7030

== ENCOUNTER 2019-09-24 15:24 | Emergency (ER) | payer OTHER ==
--- NOTE | 2019-09-24 15:47 | PDOC ---
Rapid Medical Evaluation Time Seen by Provider: 09/24/19 15:45 Medical Evaluation: Allergies Allergy/AdvReac Type Severity Reaction Status Date / Time No Known Allergies Allergy Verified 07/27/18 21:24 09/24/19 15:45 HPI: LBP with left leg radiculopathy x 2 months PE: No gross deficits Orders: Nothing Discharge Disposition - Diagnosis Lumbar radiculopathy - Referrals - Patient Instructions - Post Discharge Activity
[2019-09-24 16:00] VITALS: BP 149/78; PULSE 97; TEMP 97.8; BMI 32.5
--- NOTE | 2019-09-24 17:33 | PDOC ---
History of Present Illness - General Chief Complaint: Back Pain Stated Complaint: BACK PAIN Time Seen by Provider: 09/24/19 15:45 History Source: Patient - History of Present Illness Initial Comments: 09/24/19 17:49 Chief complaint: Back pain Patient is a 59-year-old male with history of coronary artery disease, stents, hypertension and hyperlipidemia who has chronic back pain. He states that he had a work injury 2008. He sees a back specialist who gave him for injections in his right posterior back/buttocks the end of July. Patient has had some numbness after that and pain. He has discussed it with the doctor. Patient then went to an urgent care and ended up having a CT of his lower back which shows disc bulging. Patient is not having any exacerbation of his symptoms. Patient usually takes ibuprofen and has used lidocaine patches in the past but they have not been working. Patient is ambulatory and able to sit on the exam table without any issue. GENERAL/CONSTITUTIONAL: No fever, weakness. dizziness HEAD, EYES, EARS, NOSE AND THROAT: No change in vision. No ear pain or discharge. No sore throat. CARDIOVASCULAR: No chest pain RESPIRATORY: No shortness of breath or cough GASTROINTESTINAL: No pain, nausea, vomiting, diarrhea or constipation GENITOURINARY: No dysuria MUSCULOSKELETAL: No neck, +back pain SKIN: No rash NEUROLOGIC: No headache, vertigo, loss of consciousness, or loss of sensation. GENERAL: The patient is awake, alert, and fully oriented, in no acute distress. HEAD: Normal with no signs of trauma. EYES: Pupils equal, round and reactive to light, sclera anicteric, conjunctiva clear. ENT: pharynx: no erythema, no exudate, uvula midline NECK: supple CHEST: clear, nontender, rr ABD: soft, nontender BACK: no tenderness or signs of injury EXTREMITIES: Normal range of motion, no edema. NEUROLOGICAL: Normal speech, normal gait. Cranial nerves II through XII grossly intact, no gross focal abnormalities SKIN: Warm, Dry Past History - Past Medical History Allergies/Adverse Reactions: Allergies Allergy/AdvReac Type Severity Reaction Status Date / Time No Known Allergies Allergy Verified 07/27/18 21:24 Home Medications: Ambulatory Orders Amlodipine Besylate [Norvasc -] 5 mg PO DAILY #30 tablet 07/29/18 Aspirin [ASA -] 81 mg PO DAILY #30 tab.chew 07/29/18 Atorvastatin Ca [Lipitor] 10 mg PO HS #30 tablet 07/29/18 Lisinopril [Prinivil] 5 mg PO DAILY #30 tablet 07/29/18 Methylprednisolone [Medrol Dose Manuel] 4 mg PO ASDIR #21 tablet 09/24/19 COPD: No - Immunization History Immunization Up to Date: Yes - Psycho Social/Smoking Cessation Hx Smoking History: Never smoked Have you smoked in the past 12 months: No Hx Alcohol Use: No Drug/Substance Use Hx: No Substance Use Type: None Hx Substance Use Treatment: No *Physical Exam - Vital Signs Last Vital Signs Temp Pulse Resp BP Pulse Ox 97.8 F 97 H 20 149/78 99 09/24/19 15:46 09/24/19 15:46 09/24/19 15:46 09/24/19 15:46 09/24/19 15:46 Medical Decision Making - Medical Decision Making 09/24/19 17:52 Patient with chronic back issue, has been having more issue since he got injections in July. Has a doctor that monitors his back, he is having issues over whether his pain now is related to a workers comp issue and having difficulty figuring out the doctors to say. Patient had an outpatient CT that shows disc bulges. Will give patient Medrol Dosepak. Patient will need to see his doctors for further evaluation. Discussed issues, findings, results, applicable medications and treatments and follow-up. All these were understood and all questions were answered Discharge - Discharge Information Problems reviewed: Yes Clinical Impression/Diagnosis: Lumbar radiculopathy Condition: Stable Disposition: HOME - Admission No - Additional Discharge Information Prescriptions: Methylprednisolone [Medrol Dose Manuel] 4 mg PO ASDIR #21 tablet - Follow up/Referral Referrals: Bailey Madsen MD [Primary Care Provider] - - Patient Discharge Instructions Additional Instructions: No heavy lifting or bending You can take the Medrol Dosepak as directed Return to the nearest ER if numbness, weakness, severe pain, problems with urinating or having bowel movements. Call orthopedist today for an appointment for further evaluation - Post Discharge Activity
== END 2019-09-24 17:57 | disposition home or self-care (01) ==
LOC: JER 15:24 → JERFT 15:24
DX: M54.16 Radiculopathy, lumbar region (principal); G89.29 Other chronic pain; I25.10 Atherosclerotic heart disease of native coronary artery without angina pectoris; I10 Essential (primary) hypertension; E78.5 Hyperlipidemia, unspecified
CPT/HCPCS: 99282-25